=== PATIENT | male | born 1990 | race African-American/Black ===

== ENCOUNTER 2018-10-09 21:14 | Emergency (ER) | payer OTHER ==
[2018-10-09] MEDS ORDERED: Lidocaine 1% w/Epinephrine 1:100K 30 ML VIAL ONE (21:21)
[2018-10-09] MEDS ORDERED: Adacel (T-DAP) 0.5 ML SYRINGE ONE (21:36)
[2018-10-09] MEDS ORDERED: Bacitracin 1 PK ONE (21:36)
[2018-10-09] MEDS ORDERED: Cephalexin 250 MG CAP ONE (22:11)
== END 2018-10-09 22:15 | disposition home or self-care (01) ==
LOC: NAV ERS 21:14
DX: S61.411A Laceration without foreign body of right hand, initial encounter (principal); W26.8XXA Contact with other sharp object(s), not elsewhere classified, initial encounter
CPT/HCPCS: 12004; 90471; 90715; J2001